=== PATIENT | female | born 1990 | race American Indian/Alaskan Native ===

== ENCOUNTER 2021-09-20 23:08 | Emergency (ER) | payer MEDICAID ==
[2021-09-21 01:44] LABS: Basophils # (Auto) 0.1 K/mm3 (0.0-0.1); Basophils % (Auto) 0.7 % (0.0-1.8); Eosinophils # (Auto) 0.6 K/mm3 (0.0-0.4); Eosinophils % (Auto) 6.8 % (0.0-4.3); Hematocrit 38.8 % (30.3-42.9); Hemoglobin 12.4 gm/dl (10.1-14.3); Lymphocytes # (Auto) 3.3 K/mm3 (1.2-5.4); Lymphocytes % (Auto) 38.6 % (13.4-35.0); Mean Corpuscular HGB Conc 32 % (30-34); Mean Corpuscular Volume 97 fl (79-97); Monocytes # (Auto) 0.5 K/mm3 (0.0-0.8); Monocytes % (Auto) 5.3 % (0.0-7.3); Platelet Count 310 K/mm3 (140-440); Red Cell Distribution Width 14.3 % (13.2-15.2)
[2021-09-21 01:45] LABS: Bilirubin,Urine NEG (Negative); Blood,Urine NEG (Negative); Color,Urine Yellow (Yellow); Mucus,Urine 1+ /HPF; Protein,Urine <15 mg/dL mg/dL (Negative)
[2021-09-21 01:47] LABS: HCG Qualitative,Urine Negative (Negative)
[2021-09-21 01:56] LABS: Alanine Aminotransferase 12 units/L (7-56); Albumin 4.3 g/dL (3.9-5); Blood Urea Nitrogen 9 mg/dL (7-17); Hemolysis Index 14
[2021-09-21 02:07] LABS: BUN/Creatinine Ratio 13
[2021-09-21] MEDS ORDERED: ONDANSETRON 4 MG ODT TAB PO ONE (02:11)
[2021-09-21] MEDS ORDERED: predniSONE 20 MG TAB PO ONE (02:11)
[2021-09-21] MEDS ORDERED: ACETAMINOPHEN 500 MG TAB PO ONE (02:11)
[2021-09-21] MEDS ORDERED: IBUPROFEN 600 MG TAB PO ONE (02:11)
--- NOTE | 2021-09-21 02:33 | Emergency Department Report ---
ED Female HPI - General Chief complaint: Abdominal Pain Stated complaint: BLADDER PAIN Source: patient Mode of arrival: Ambulatory Limitations: No Limitations - History of Present Illness Initial comments: Patient is a nulliparous 30-year-old -[place] female with no past medical history who presents to the ED with complaint of acute onset persistent nontraumatic bilateral ankle joint pain for the last 3 weeks. Patient also complains of acute onset urinary frequency and urgency, suprapubic pressure and dysuria for the last 1 week. Patient denies nausea, vomiting, dizziness, syncope, vaginal bleeding, constipation, fever, chills, diarrhea, dyspareunia, low back pain, chest pain, fall, traumatic injury, heavy lifting, numbness and tingling or weakness of lower extremities bilaterally. MD Complaint: dysuria, pelvic pain, other (Urinary frequency and urgency; bilateral ankle pain) -: Sudden, week(s) (2) Location: suprapubic, other (bilateral ankle joints) Radiation: non-radiating Severity: severe Severity scale (0 -10): 7 Quality: sharp Consistency: constant Improves with: none, movement Worsens with: movement Are you Now?: No Last Menstrual Period: 09/13/21 EDC: 06/20/22 Associated Symptoms: denies other symptoms, abdominal pain (Suprapubic pressure), other (Bilateral ankle joint pain). denies: vaginal discharge, vaginal bleeding, headaches, hematuria, seizure, shortness of breath, syncope, weakness - Related Data Sexually active: Yes : 0 Para: 0 A: 0 Previous Rx's Medication Instructions Recorded Last Taken Type Ibuprofen [Motrin] 600 mg PO Q8H PRN #30 tablet 09/21/21 Unknown Rx predniSONE [Deltasone] 40 mg PO QDAY #10 tab 09/21/21 Unknown Rx traMADoL [Ultram] 50 mg PO Q6HR PRN #12 tablet 09/21/21 Unknown Rx Allergies Allergy/AdvReac Type Severity Reaction Status Date / Time No Known Allergies Allergy Verified 09/21/21 01:31 ED Review of Systems ROS: Stated complaint: BLADDER PAIN Other details as noted in HPI Constitutional: denies: chills, fever Eyes: denies: eye pain, eye discharge, vision change ENT: denies: ear pain, throat pain Respiratory: denies: cough, shortness of breath, wheezing Cardiovascular: denies: chest pain, palpitations Endocrine: no symptoms reported Gastrointestinal: abdominal pain (Suprapubic pain). denies: nausea, diarrhea Genitourinary: urgency, dysuria, frequency. denies: discharge, abnormal menses, dyspareunia Musculoskeletal: joint swelling (Bilateral ankle pain and swelling), arthralgia (Bilateral ankle pain). denies: back pain Skin: denies: rash, lesions Neurological: denies: headache, weakness, paresthesias Psychiatric: denies: anxiety, depression Hematological/Lymphatic: denies: easy bleeding, easy bruising ED Past Medical Hx - Past Medical History Previous Medical History?: No - Surgical History Past Surgical History?: No - Medications Home Medications: Home Medications Medication Instructions Recorded Confirmed Last Taken Type Ibuprofen [Motrin] 600 mg PO Q8H PRN #30 tablet 09/21/21 Unknown Rx predniSONE [Deltasone] 40 mg PO QDAY #10 tab 09/21/21 Unknown Rx traMADoL [Ultram] 50 mg PO Q6HR PRN #12 tablet 09/21/21 Unknown Rx ED Physical Exam - General Limitations: No Limitations General appearance: alert, in no apparent distress - Head Head exam: Present: atraumatic, normocephalic, normal inspection - Eye Eye exam: Present: normal appearance, PERRL, EOMI Pupils: Present: normal accommodation - ENT ENT exam: Present: normal exam, normal orophraynx, mucous membranes moist, TM's normal bilaterally, normal external ear exam - Neck Neck exam: Present: normal inspection, full ROM - Respiratory Respiratory exam: Present: normal lung sounds bilaterally. Absent: respiratory distress, wheezes, rales, rhonchi, chest wall tenderness, accessory muscle use, decreased breath sounds, other - Cardiovascular Cardiovascular Exam: Present: regular rate, normal rhythm, normal heart sounds. Absent: systolic murmur, diastolic murmur, rubs, gallop - GI/Abdominal GI/Abdominal exam: Present: soft, normal bowel sounds. Absent: distended, tenderness, guarding, rebound, hyperactive bowel sounds, hypoactive bowel sounds, organomegaly, pulsatile mass - Extremities Exam Extremities exam: Present: normal inspection, full ROM, tenderness (Palpable bilateral ankle joint tenderness), normal capillary refill. Absent: pedal edema, joint swelling - Back Exam Back exam: Present: normal inspection, full ROM. Absent: tenderness, CVA tenderness (R), CVA tenderness (L), muscle spasm, paraspinal tenderness - Neurological Exam Neurological exam: Present: alert, oriented X3, CN II-XII intact, normal gait, reflexes normal - Psychiatric Psychiatric exam: Present: normal affect, normal mood - Skin Skin exam: Present: warm, dry, intact, normal color. Absent: rash ED Course Vital Signs 09/20/21 23:10 Temperature 98.4 F Pulse Rate 75 Respiratory 17 Rate Blood Pressure 138/63 [Right] O2 Sat by Pulse 100 Oximetry ED Medical Decision Making - Lab Data Result diagrams: 09/21/21 01:26 09/21/21 01:26 - Medical Decision Making This is a nulliparous 30-year-old -[place] female with no past medical history who presents to the ED with complaint of acute onset persistent nontraumatic bilateral ankle joint pain for the last 3 weeks. Patient also complains of acute onset urinary frequency and urgency, suprapubic pressure and dysuria for the last 1 week. In the ED, patient is alert and oriented x3 and is not in any distress. Patient is hemodynamically stable. Patient was treated for pain in the ED. Urinalysis is unremarkable with a negative urine test. All of the lab test results were reviewed and are all nonactionable including platelet levels. Patient was discharged home on pain medications and advised to follow-up with her primary care physician in 7 to 10 days for reevaluation or return to the ED immediately if symptoms get worse. - Differential Diagnosis Ankle tendinitis; ankle muscle strain; UTI; Critical care attestation.: If time is entered above; I have spent that time in minutes in the direct care of this critically ill patient, excluding procedure time. ED Disposition Clinical Impression: Acute bilateral ankle pain, Tendinitis of both ankles, Suprapubic abdominal pain Disposition: 01 HOME / SELF CARE / HOMELESS Is pt being admited?: No Does the pt Need Aspirin: No Condition: Stable Instructions: Abdominal Pain (ED), Pelvic Pain, Female, [id number], Joint Pain, [id number], Tendinitis, [id number], Muscle Strain, [id number] Additional Instructions: All lab test results were reviewed and are all nonactionable, therefore your ankle pain is due to muscle strain, muscle spasm or tendinitis. Urinalysis is unremarkable with no sign of urinary tract infection or . Therefore take medications with food, drink plenty of fluids and follow-up with your primary care physician or [employer] physician in 7 to 10 days for reevaluation. Return to the ED immediately if symptoms get worse. Prescriptions: predniSONE [Deltasone] 40 mg PO QDAY #10 tab Ibuprofen [Motrin] 600 mg PO Q8H PRN #30 tablet PRN Reason: Pain traMADoL [Ultram] 50 mg PO Q6HR PRN #12 tablet PRN Reason: Pain Referrals: [facility] [Provider Group] - 3-5 Days Forms: Work/School Release Form(ED) Time of Disposition: 02:35 Print Language: IRISH
[2021-09-21 04:28] VITALS: BP 120/75
== END 2021-09-21 03:55 | disposition home or self-care (01) ==
LOC: ED 23:08
DX: M77.9 Enthesopathy, unspecified (principal); R10.30 Lower abdominal pain, unspecified; R35.0 Frequency of micturition; R30.0 Dysuria
CPT/HCPCS: 36415; 80053; 81001; 81025; 85025; 99283; J7512; J3490; Q0162